=== PATIENT | male | born 1995 | race American Indian/Alaskan Native ===

== ENCOUNTER 2018-01-01 13:12 | Emergency (ER) | payer SELFPAY ==
[2018-01-01 13:22] VITALS: BP 100/68
== END 2018-01-01 14:24 | disposition left against medical advice (07) ==
LOC: ED 13:12
DX: N39.0 Urinary tract infection, site not specified (principal); Z53.21 Procedure and treatment not carried out due to patient leaving prior to being seen by health care provider
CPT/HCPCS: 87086

== ENCOUNTER 2021-02-07 12:29 | Emergency (ER) | payer BC ==
[2021-02-07] MEDS ORDERED: LIDOCAINE-MPF (1%) 10 MG/1 ML VIAL 5 ML INFILTRATI ONE ×2 (12:57→12:58)
--- NOTE | 2021-02-07 13:03 | Emergency Department Report ---
ED Male HPI - General Chief complaint: Urogenital-Male Stated complaint: GENITAL PROBLEMS Source: patient Mode of arrival: Ambulatory Limitations: No Limitations - History of Present Illness Initial comments: The patient was evaluated in the emergency department for symptoms described in the history of present illness. He/she was evaluated in the context of the global COVID-19 pandemic, which necessitated consideration that the patient might be at risk for infection with the virus that causes COVID-19. Institutional protocols and algorithms that pertain to the evaluation of patients at risk for COVID-19 are in a state of rapid change based on information released by regulatory bodies including the CDC and federal and state organizations. These policies and algorithms were followed during the patient's care in the emergency department. Please note that these policies, procedures and recommendations changed on a rapid basis. 25-year-old -[place] male presents to the emergency room complaining of penile discharge for the last 3 days. Patient states he has sharp penile pain. He states he is concerned for STD. Denies any testicular pain no testicular swelling no back pain no abdominal pain no fever no chills. Patient reports he does not have a primary care provider. He denies any past medical history currently takes no meds on a daily basis and has no known drug allergies. Patient admits to unprotected intercourse. MD Complaint: penile discharge Onset/Timin -: days(s) Location: penis Radiation: none Quality: sharp Consistency: intermittent Improves with: none Worsens with: none denies other symptoms - Related Data Previous Rx's Medication Instructions Recorded Last Taken Type Doxycycline Hyclate [Doxycycline 100 mg PO Q12HR 10 Days #20 tab 02/07/21 Unknown Rx Hyclate TAB] Allergies Allergy/AdvReac Type Severity Reaction Status Date / Time No Known Allergies Allergy Verified 01/01/18 13:19 ED Review of Systems ROS: Stated complaint: GENITAL PROBLEMS Other details as noted in HPI Comment: All other systems reviewed and negative ED Past Medical Hx - Social History Smoking Status: Never Smoker Substance Use Type: Alcohol - Medications Home Medications: Home Medications Medication Instructions Recorded Confirmed Last Taken Type Doxycycline Hyclate [Doxycycline 100 mg PO Q12HR 10 Days #20 tab 02/07/21 Unknown Rx Hyclate TAB] ED Physical Exam - General Limitations: No Limitations ED Course Vital Signs 02/07/21 12:36 Temperature 98.4 F Pulse Rate 70 Respiratory 14 Rate Blood Pressure 122/67 [Left] O2 Sat by Pulse 100 Oximetry ED Medical Decision Making - Medical Decision Making 25-year-old -[place] male presents to the emergency room complaining of penile discharge for the last 3 days. Patient states he has sharp penile pain. He states he is concerned for STD. Denies any testicular pain no testicular swelling no back pain no abdominal pain no fever no chills. Patient reports he does not have a primary care provider. He denies any past medical history currently takes no meds on a daily basis and has no known drug allergies. Patient admits to unprotected intercourse. Rocephin 1 g IM discharged on doxycycline referral to the health department for full STD evaluation. Patient is to restrain from intercourse until he is tested and treated. Critical care attestation.: If time is entered above; I have spent that time in minutes in the direct care of this critically ill patient, excluding procedure time. ED Disposition Clinical Impression: Concern about STD in male without diagnosis, Abnormal penile discharge Disposition: 01 HOME / SELF CARE / HOMELESS Is pt being admited?: No Does the pt Need Aspirin: No Condition: Stable Instructions: Safe Sex Additional Instructions: Complete your doxycycline as prescribed. Is very important that you follow-up at the health department for full STD evaluation. Refrain from intercourse for the next 2 weeks. Be sure to get tested before having intercourse. Prescriptions: Doxycycline Hyclate [Doxycycline Hyclate TAB] 100 mg PO Q12HR 10 Days #20 tab [facility] - [facility]-5 Days Forms: Work/School Release Form(ED) Time of Disposition: 13:03
[2021-02-07 13:09] VITALS: BP 120/70
== END 2021-02-07 13:32 | disposition home or self-care (01) ==
LOC: ED 12:29
DX: Z20.2 Contact with and (suspected) exposure to infections with a predominantly sexual mode of transmission (principal); R36.9 Urethral discharge, unspecified; Z79.899 Other long term (current) drug therapy
CPT/HCPCS: 96372; 99282; J0696; J3490